=== PATIENT | female | born 1975 | race Caucasian/White ===

== ENCOUNTER → 2018-11-04 | Outpatient (CLI) | payer OTHER ==
--- NOTE | 2018-11-04 14:39 | REP ---
RIGHT WRIST SERIES: FOUR VIEWS. HISTORY: Injury to the right hand. FINDINGS: Four views of the right wrist show overall normal mineralization. Bones, joints, and soft tissues are unremarkable. No fracture or subluxation is seen. IMPRESSION: Negative radiographs of the right wrist. Electronically Signed by Woo Georges MD 11/04/2018 10:24 P
== END ==
LOC: M LRY 13:27
PROVIDERS: ATTEND Physician Assistant
DX: S69.91XA Unspecified injury of right wrist, hand and finger(s), initial encounter (principal); W00.9XXA Unspecified fall due to ice and snow, initial encounter; Y92.89 Other specified places as the place of occurrence of the external cause; Y93.89 Activity, other specified; Y99.8 Other external cause status